=== PATIENT | male | born 1960 | race Two or more races ===

== ENCOUNTER 2023-07-16 12:46 | Emergency (ER) | payer MEDICAID ==
[~2023-07-16] VITALS: Ht 157.5 cm; Wt 68.6 kg
[2023-07-16 14:16] VITALS: BP 161/95; PULSE 104; RESP 18; TEMP 99.3; O2SAT 99
[2023-07-16] MEDS: cefTRIAXone SOD 1,000 MG VL IM ONE (14:51)
[2023-07-16] MEDS ORDERED: CLIN1CAP70 PO (15:04)
[2023-07-16] MEDS ORDERED: IBUP-1454 PO (15:04)
== END 2023-07-16 15:10 | disposition home or self-care (01) ==
LOC: ER 12:46
DX: K04.7 Periapical abscess without sinus (principal); Z79.899 Other long term (current) drug therapy
CPT/HCPCS: 96372; 99283; J0696